=== PATIENT | female | born 1970 | race Caucasian/White ===

== ENCOUNTER 2017-02-01 16:32 | Outpatient (CLI) | payer OTHER ==
[2015-09-22 10:54] VITALS: BP 130/85
--- NOTE | 2017-02-02 14:45 | Diagnostic Imaging Report ---
EVELYN BERMUDEZ [facility] [address] [facility] [address] [address] Report Submission Date: Feb 01, 2017 5:05:42 PM CDT Patient Study Name: YARIEL LUCERO Date: Feb 01, 2017 4:39:31 PM CDT Modality Type: CR Gender: F Description: SPINE : 70 Institution: [facility] Physician: EVELYN BERMUDEZ Examination: Lumbar spine plane film History: Back discomfort Findings: 3 views of the lumbar spine demonstrates normal height and alignment. Few anterior osteophytes. Mild disc space narrowing L5/S1. Minimal atherosclerotic disease involving the aortoiliac vessels. Impression: Mild degenerative changes. No fracture. Electronically signed on Feb 01, 2017 5:05:42 PM CDT by: Ron PAREKH
--- NOTE | 2017-02-02 14:45 | Diagnostic Imaging Report ---
EVELYN BERMUDEZ [facility] [address] [facility] [address] [address] Report Submission Date: Feb 01, 2017 5:26:06 PM CDT Patient Study Name: YARIEL LUCERO Date: Feb 01, 2017 4:44:20 PM CDT Modality Type: CR Gender: F Description: PELVIS : 70 Institution: [facility] Physician: EVELYN BERMUDEZ Examination: Right Hip plain film History: Hip discomfort Findings: 2 views of the right hip demonstrates normal cortical margins. No evidence for fracture line. No displacement. Os acetabuli. Pelvic phleboliths. Superior and inferior pubic rami and visualized margin of the iliac wing are within normal limits. Impression: No acute osseous process. Electronically signed on Feb 01, 2017 5:26:06 PM CDT by: Ron PAREKH
== END 2017-02-01 16:33 ==
LOC: RAD 16:32
PROVIDERS: ATTEND Family Medicine
DX: M54.5 Low back pain (principal); M25.551 Pain in right hip
CPT/HCPCS: 72100; 73502

== ENCOUNTER 2017-03-07 10:56 | Emergency (ER) | payer OTHER ==
--- NOTE | 2017-03-07 11:27 | ED Physician Documentation ---
Ear Complaints - HISTORIAN Historian: patient - HPI Stated Complaint: L EAR PAIN Chief Complaint: Ear Complaints Additional Information: has sharp pain in Left ear. was swimming one week ago. had similar in past. Timing: still present Location of Pain: L ear Severity: moderate Associated Symptoms: sharp pain. denies: fever, chills, ringing, roaring Further Comments: no - ROS CONST: no problems CVS/RESP: none GI/: denies: nausea MS/SKIN/LYMPH: none NEURO/PSYCH: denies: weakness All Systems -: No - PAST HX Past History: frequent ear infections Allergies/Adverse Reactions: Allergies Allergy/AdvReac Type Severity Reaction Status Date / Time No Known Allergies Allergy Verified 03/07/17 11:05 Home Medications: Ambulatory Orders Medication Instructions Recorded Cyclobenzaprine HCl [Flexeril] 10 mg PO QD 03/07/17 - SOCIAL HX Smoking History: cigarettes Alcohol Use: occasionally Drug Use: none - FAMILY HX Family History: No - VITAL SIGNS Vital Signs: Vital Signs Temp Pulse Resp BP Pulse Ox 97.7 F 91 H 18 128/85 97 03/07/17 10:58 03/07/17 10:58 03/07/17 10:58 03/07/17 10:58 03/07/17 10:58 - REVIEWED ASSESSMENTS Nursing Assessment Reviewed: Yes Vitals Reviewed: Yes Ear Complaint Physical Exam - EXAM General Appearance: no acute distress, alert Ear: auricle nml, pain w movement of auricl, left, swelling of canal, material in canal, discharge Mouth/Throat: lips nml Nose: nml inspection Head/Neck: atraumatic, neck nml inspection Eye: eyes nml inspection Resp/CVS: no resp. distress Abdomen: non-tender Skin: nml color, no skin rash Neuro/Psych: oriented x3 Discharge Clincal Impression: Swimmer's ear of left side Qualifiers: Chronicity: acute Qualified Code(s): H60.332 - Swimmer's ear, left ear Referrals: Yoly Brewster MD [Primary Care Provider] - 2 Days Home Medications: Ambulatory Orders Cyclobenzaprine HCl [Flexeril] 10 mg PO QD 03/07/17 Condition: Good Disposition: 01 HOME, SELF-CARE Decision to Admit: NO Date of Decison to Admit: 03/07/17 Decision Time: 11:27
[2017-03-07] MEDS: TETRACAINE HCL/PF 5% OPTH SOL OP ONE (11:41)
[2017-03-07 12:12] VITALS: BP 125/70
== END 2017-03-07 12:00 | disposition home or self-care (01) ==
LOC: ED 10:56
DX: H60.332 Swimmer's ear, left ear (principal)
CPT/HCPCS: 99283